=== PATIENT | female | born 1975 | race African-American/Black ===

== ENCOUNTER → 2017-09-04 | Outpatient (CLI) | payer MEDICARE, MEDICAID ==
[~2017-09-04] MED LIST: DIPY25TA34 PO; FERR-63 PO; HYDR-3927 PO; HYDR25TA PO; KV10 PO; OMEP20CA4 PO; SODIUM CHLORIDE 0.9% 10ML VIAL ONE
== END | disposition home or self-care (01) ==
LOC: NM 08:01
PROVIDERS: ATTEND Orthopaedic Surgery Adult Reconstructive Orthopaedic Surgery
DX: Z47.1 Aftercare following joint replacement surgery (principal); Z96.651 Presence of right artificial knee joint
CPT/HCPCS: 78306; A4216; A9503; C1893

== ENCOUNTER 2017-11-11 11:54 | Emergency (ER) | payer MEDICARE, MEDICAID ==
[~2017-11-11] VITALS: Ht 157.5 cm; Wt 136.0 kg
[~2017-11-11 11:54] MED LIST changes: -SODIUM CHLORIDE 0.9% 10ML VIAL ONE
[2017-11-11 12:58] LABS: CLARITY URINE CLEAR (CLEAR); COLOR URINE YELLOW (YELLOW); KETONES URINE NEGATIVE (NEGATIVE); LEUKOCYTE ESTERASE URINE TRACE (NEGATIVE); NITRITE URINE NEGATIVE (NEGATIVE); OCCULT BLOOD URINE NEGATIVE (NEGATIVE); PROTEIN URINE NEGATIVE (NEGATIVE); UROBILINOGEN URINE 0.2 E.U./dL (0.2-1.0)
[2017-11-11] MEDS ORDERED: SODIUM CHLORIDE 0.9% 1,000 ML IV ONE (15:33)
[2017-11-11] MEDS ORDERED: MORPHINE SULFATE 4 MG/ML CPJ (NOT FOR IM USE) IV STA (15:33)
[2017-11-11 16:06] LABS: BASOPHILS % 0.6 % (0.0-2.0); EOSINOPHILS % 1.8 % (0.0-5.0); HEMATOCRIT. 34.4 % (36.0-48.0); HEMOGLOBIN. 11.6 g/dL (12.0-16.0); LYMPHOCYTES % 32.7 % (20.0-50.0); MEAN CORPUSCULAR HEMOGLOBIN 29.3 pg (28.0-32.0); MEAN CORPUSCULAR VOLUME 87.1 fL (81.0-99.0); MEAN PLATELET VOLUME 10.2 fl (7.4-10.4); MONOCYTES % 5.1 % (2.0-8.0); NEUTROPHILS % 59.8 % (40.0-76.0); PLATELET 224 x1000/uL (130-400); RED BLOOD CELL COUNT 3.95 mill/uL (4.2-5.4); RED CELL DISTRIBUTION WIDTH 15.2 % (11.6-14.6)
[2017-11-11 16:12] LABS: PROTHROMBIN TIME 10.7 sec (9.4-11.6)
[2017-11-11 16:13] LABS: CHLORIDE 106 mEq/L (98-107)
[2017-11-11 16:18] LABS: HCG SCREEN NEGATIVE
[2017-11-11] MEDS ORDERED: IOHEXOL-300 100 ML BOTTLE ONE (18:12)
[2017-11-11 19:31] VITALS: BP 126/9
== END 2017-11-11 19:34 | disposition home or self-care (01) ==
LOC: ER 12:25
DX: R10.9 Unspecified abdominal pain (principal); J45.909 Unspecified asthma, uncomplicated; I50.9 Heart failure, unspecified; Z98.84 Bariatric surgery status; Z90.49 Acquired absence of other specified parts of digestive tract
CPT/HCPCS: 36415; 72070; 72100; 74177; 80053; 81003; 83605; 83690; 84703; 85025; 85610; 96361; 96374; 99285; J2270; J7030; Q9967

== ENCOUNTER → 2018-01-26 | Outpatient (CLI) | payer MEDICARE, MEDICAID | END | disposition home or self-care (01) | LOC: RAD 13:35 | PROVIDERS: ATTEND Neurological Surgery | DX: M48.061 Spinal stenosis, lumbar region without neurogenic claudication (principal) | CPT/HCPCS: 72148 ==

== ENCOUNTER 2018-08-08 21:52 | Emergency (ER) | payer MEDICARE, MEDICAID ==
[~2018-08-08] VITALS: Ht 160 cm; Wt 146.0 kg
[~2018-08-08 21:52] MED LIST changes: +Albuterol inhaler INH; +FOLI-43 MT; -HYDR-3927 PO; +HYDR-4009 PO; +METO2.5T14 MT; +MULTIVITAMIN PO; +Vit D3 PO
[2018-08-09] MEDS ORDERED: METHYLPREDNISOLONE SOD SUCC 125 MG/2 ML VIAL IV STA (01:54)
[2018-08-09] MEDS ORDERED: ALBUTEROL (0.083%) 2.5MG/3ML NEB HHN STA (01:54)
[2018-08-09] MEDS ORDERED: IPRATROPIUM BROMIDE (0.02%) 0.5MG/2.5ML NEB HHN STA (01:54)
[2018-08-09 04:10] VITALS: BP 134/58
== END 2018-08-09 08:03 | disposition home or self-care (01) ==
LOC: ER 08-09 08:03
DX: J44.1 Chronic obstructive pulmonary disease with (acute) exacerbation (principal); Z98.890 Other specified postprocedural states; Z95.0 Presence of cardiac pacemaker; Z96.653 Presence of artificial knee joint, bilateral; Z79.899 Other long term (current) drug therapy
CPT/HCPCS: 71045; 81025; 94640; 96374; 99283; J2930; J7611

== ENCOUNTER 2019-11-05 12:07 | Emergency (ER) | payer MEDICARE, MEDICAID ==
[~2019-11-05] VITALS: Ht 160 cm; Wt 168.1 kg
[2019-11-05] MEDS ORDERED: prednisone (12:25)
[2019-11-05] MEDS ORDERED: ALBUTEROL (0.083%) 2.5MG/3ML NEB HHN STA (12:51)
[2019-11-05] MEDS ORDERED: PREDNISONE 20MG TABLET PO STA (12:51)
[2019-11-05] MEDS ORDERED: IPRATROPIUM/ALBUTEROL 0.5-3(2.5)MG/3ML NEB HHN ONE (14:30)
[2019-11-05 17:34] VITALS: BP 137/77
== END 2019-11-05 17:37 | disposition home or self-care (01) ==
LOC: ER 12:07
DX: J45.901 Unspecified asthma with (acute) exacerbation (principal); J45.909 Unspecified asthma, uncomplicated; Z87.01 Personal history of pneumonia (recurrent); Z95.0 Presence of cardiac pacemaker; Z98.890 Other specified postprocedural states; Z96.659 Presence of unspecified artificial knee joint; Z98.84 Bariatric surgery status; Z79.899 Other long term (current) drug therapy
CPT/HCPCS: 71045; 93005; 94640; 99284; J7512

== ENCOUNTER 2020-05-15 13:02 | Emergency (ER) | payer MEDICARE, MEDICAID ==
[~2020-05-15] VITALS: Ht 160 cm; Wt 180.0 kg
[~2020-05-15 13:02] MED LIST changes: -DIPY25TA34 PO; -FERR-63 PO; -FOLI-43 MT; -HYDR-4009 PO; -HYDR25TA PO; +prednisone
[2020-05-15 13:30] VITALS: BP 139/70
[2020-05-15] MEDS ORDERED: MORPHINE SULFATE 4 MG/ML CPJ (NOT FOR IM USE) IV STA (14:11)
[2020-05-15 14:26] LABS: BASOPHILS % 0.8 % (0.0-2.0); EOSINOPHILS % 1.8 % (0.0-5.0); HEMATOCRIT. 31.4 % (36.0-48.0); HEMOGLOBIN. 9.9 g/dL (12.0-16.0); LYMPHOCYTES % 22.6 % (20.0-50.0); MEAN CORPUSCULAR HEMOGLOBIN 23.4 pg (28.0-32.0); MEAN CORPUSCULAR VOLUME 73.9 fL (81.0-99.0); MEAN PLATELET VOLUME 9.9 fl (7.4-10.4); MONOCYTES % 6.5 % (2.0-8.0); NEUTROPHILS % 68.3 % (40.0-76.0); PLATELET 273 x1000/uL (130-400); RED BLOOD CELL COUNT 4.24 mill/uL (4.2-5.4); RED CELL DISTRIBUTION WIDTH 18.4 % (11.6-14.6)
[2020-05-15 14:33] LABS: CHLORIDE 113 mEq/L (98-107)
[2020-05-15 14:50] LABS: HCG SCREEN NEGATIVE
[2020-05-15] MEDS ORDERED: IOHEXOL-300 100 ML BOTTLE ONE (16:03)
== END 2020-05-15 16:39 | disposition home or self-care (01) ==
LOC: ER 13:02
DX: R10.12 Left upper quadrant pain (principal); J45.909 Unspecified asthma, uncomplicated; Z79.899 Other long term (current) drug therapy; Z98.51 Tubal ligation status
CPT/HCPCS: 36415; 74177; 80053; 83690; 84703; 85025; 99285; Q9967

== ENCOUNTER 2020-08-01 09:00 | Emergency (ER) | payer MEDICARE, MEDICAID ==
[~2020-08-01] VITALS: Ht 160 cm; Wt 120.0 kg
[2020-08-01 09:33] VITALS: BP 146/69
[2020-08-01] MEDS ORDERED: ACETAMINOPHEN 325MG TABLET PO STA (09:35)
[2020-08-01] MEDS ORDERED: KETOROLAC 30MG/ML VIAL IV STA (09:35)
[2020-08-01] MEDS ORDERED: AZITHROMYCIN 500 MG in DEXT 5% WATER 250 ML IV ONE (09:45)
[2020-08-01] MEDS ORDERED: SODIUM CHLORIDE 0.9% 1,000 ML IV ONE ×2 (09:45→10:45)
[2020-08-01] MEDS ORDERED: CEFTRIAXONE 1 G PREMIX 50 ML IV ONE (09:45)
[2020-08-01] MEDS ORDERED: KETOROLAC 60MG/2ML VIAL IM ONE (11:15)
[2020-08-01] MEDS ORDERED: ONDANSETRON 4MG ODT PO ONE (11:15)
== END 2020-08-01 11:37 | disposition home or self-care (01) ==
LOC: ER 09:00
DX: U07.1 COVID-19 (principal); J45.909 Unspecified asthma, uncomplicated; I25.10 Atherosclerotic heart disease of native coronary artery without angina pectoris; Z95.810 Presence of automatic (implantable) cardiac defibrillator; Z98.84 Bariatric surgery status
CPT/HCPCS: 71045; 81025; 93005; 96372; 99283; J0456; J1885; J7030; J7060; Q0162; J0696